=== PATIENT | male | born 1940 | race Caucasian/White ===

== ENCOUNTER 2019-11-06 11:16 | Emergency (ER) | payer MEDICARE, OTHER ==
[2019-11-06] MEDS ORDERED: BABY ASPIRIN 81 MG CHEW PO ONE (12:02)
[2019-11-06] MEDS ORDERED: Cardizem IV 50 MG/10 ML IV ONE ×2 (12:04→12:20)
[2019-11-06] MEDS ORDERED: Lasix 40 MG/4 ML IV ONE (12:04)
[2019-11-06] MEDS ORDERED: DUONEB 0.5-3 MG/3 ml Neb IH ONE ×2 (12:05→12:15)
[2019-11-06 12:12] LABS: Hematocrit 35.9 % (42-50); Hemoglobin 11.4 gm/dl (12.5-18.0); Mean Cell Volume 97.3 fl (78-100); Mean Corpuscular Hemoglobin 30.9 pg (26-32); Mean Corpuscular Hgb Concent. 31.8 g/dl (32-36); Mean Platelet Volume 10.2 fl (7.5-11.0); Platelet Count 205 K/mm3 (150-450); Red Blood Count 3.69 M/mm3 (4.1-5.6); Red Cell Distribution Width 15.2 % (11.5-14.0); White Blood Count 11.2 K/mm3 (4.0-10.5)
[2019-11-06] MEDS ORDERED: Lasix 40 MG/4 ML ONE (12:20)
[2019-11-06] MEDS ORDERED: BABY ASPIRIN 81 MG CHEW ONE (12:20)
[2019-11-06 12:29] LABS: ALBUMIN 3.7 g/dL (3.5-5.0); ANION GAP 16.1 MEQ/L (5-15); BILIRUBIN,TOTAL 0.7 mg/dL (0.2-1.3); Creatinine 1 4.35 mg/dL (0.66-1.25); EST GLOMERULAR FILTRATION RATE 14.1 ML/MIN; Potassium 4.3 mmol/L (3.5-5.1); Total Protein 6.6 g/dL (6.3-8.2)
--- NOTE | 2019-11-06 12:54 | ERPHSYRPT ---
- History of Present Illness Time Seen by Provider: 11/06/19 11:40 Historian: patient Exam Limitations: no limitations Patient Subjective Stated Complaint: Pt had a telehealth with [facility] and he was short of breath, bud lower extremity edema, and the pt stated that he thinks he had a heart attack last night Triage Nursing Assessment: Pt was brought to the ER by his , tachycardic, hypertensive, cough with clear sputum, tachypnea, bud lower +2 edema, extensive heart history, reports that unable to do any more surgeries on heart, pulses normal, denies pain, lungs coarse on expiration Physician History: 78 years old male with extensive history of coronary artery disease, CABG x2, hypertension atrial fibrillation flutter presented in the ER with 2 weeks history of cough congestion with gradual worsening associated with some shortness of breath and last night started to have left-sided chest pain moderate intensity, sharp in nature, took 6 nitros and 324 aspirin and after 3 to 4 hours it started to improve. Patient still feels short of breath and worn out with minimal activity. He has bilateral lower extremity swelling which is gradually worsening. Denies any chest pain at present but has some shortness of breath only with exertion. Patient report exertional dyspnea is worsening. He thinks he had a heart attack last night. Denies any fever or chills. Timing/Duration: intermittent, gradual onset, worse Activities at Onset: rest Quality: sharpness Location: substernal Chest Pain Radiation: no radiation Severity of Pain-Max: moderate Severity of Pain-Current: none Modifying Factors: Improves With: nitroglycerin, aspirin Associated Symptoms: palpitations, shortness of breath, fatigue, weakness, No chills, No fever Prior Chest Pain/Cardiac Workup: cardiac cath Nitro Today/Relief: provided at home Aspirin Treatment Today: provided by ED Allergies/Adverse Reactions: Penicillins Allergy (Verified 11/06/19 11:35) Home Medications: Clonidine HCl 0.1 mg [Catapres 0.1 MG] 0.05 mg PO BID 11/06/19 [History] Clopidogrel Bisulfate 75 mg [PLAVIX 75 MG Tablet] 75 mg PO DAILY 11/06/19 [History] Finasteride 5 mg PO DAILY 11/06/19 [History] Nifedipine [Procardia Xl] 30 mg PO BID 11/06/19 [History] Ranolazine 500 MG [Ranexa 500 MG] 500 mg PO BID 11/06/19 [History] Rosuvastatin Calcium [Crestor] 20 mg PO DAILY 11/06/19 [History] Tamsulosin HCl 0.4 mg [Flomax 0.4 MG] 0.4 mg PO DAILY 11/06/19 [History] allopurinoL [Allopurinol] 100 mg PO DAILY 11/06/19 [History] Travel Risk - International Travel Have you traveled outside of the country in past 3 weeks: No - Coronavirus Screening Are you exhibiting any of the following symptoms?: Yes Symptoms: Cough: New Onset, Shortness of Breath Close contact with a COVID-19 positive Pt in past 14-21 Days: No - Review of Systems Constitutional: Fatigue, Weakness Eyes: No Symptoms Ears, Nose, & Throat: Nose Congestion Respiratory: Cough, Dyspnea, Dyspnea on Exertion (DALEY), Wheezing Cardiac: Chest Pain, Edema, Palpitations Abdominal/Gastrointestinal: No Symptoms Genitourinary Symptoms: No Symptoms Musculoskeletal: No Symptoms Skin: No Symptoms Neurological: No Symptoms Psychological: No Symptoms Endocrine: No Symptoms Hematologic/Lymphatic: No Symptoms Immunological/Allergic: No Symptoms - Past Medical History Neurological History: TIA Cardiac History: Congenital Heart Disease, Congestive Heart Failure, Coronary Artery Disease History: Other - Past Surgical History Past Surgical History: Yes Cardiac: CABG - Social History Smoking Status: Former smoker Exposure to second hand smoke: No Drug Use: none Patient Lives Alone: No - Nursing Vital Signs Nursing Vital Signs: Initial Vital Signs Temperature 98.1 F 11/06/19 11:22 Pulse Rate 97 H 11/06/19 11:22 Respiratory Rate 13 11/06/19 11:22 Blood Pressure 158/88 11/06/19 11:22 O2 Sat by Pulse Oximetry 96 11/06/19 11:22 Pain Scale Pain Intensity 0 - Physical Exam General Appearance: no apparent distress, alert Eye Exam: PERRL/EOMI, eyes nml inspection Ears, Nose, Throat Exam: normal ENT inspection, pharyngeal erythema Neck Exam: normal inspection, non-tender, supple, full range of motion Respiratory Exam: crackles/rales, wheezing, No chest tenderness Cardiovascular Exam: tachycardia Gastrointestinal/Abdomen Exam: soft, normal bowel sounds Back Exam: normal inspection, normal range of motion Extremity Exam: normal inspection, normal range of motion, pedal edema Neurologic Exam: alert, oriented x 3, cooperative Skin Exam: normal color SpO2 Interpretation: normal SpO2: 95 O2 Delivery: Room Air - Course Nursing assessment & vital signs reviewed: Yes EKG Interpreted by Me: RATE (124, ATRIAL FLUTTER , PVC), NORMAL AXIS, Right Bundle Branch Block, Q-wave, Other (ST DEPRESSION ) Rhythm Strip: Atrial Flutter Ordered Tests: Active Orders 24 hr Category Date Time Status EKG-ER Only STAT Care 11/06/19 12:02 Active IV Insertion STAT Care 11/06/19 12:02 Active CHEST 1 VIEW (PORTABLE) Stat Exams 11/06/19 12:03 Taken BLOOD CULTURE Stat Lab 11/06/19 Ordered CBC W DIFF Stat Lab 11/06/19 11:48 Completed CMP Stat Lab 11/06/19 11:48 Completed Lactic Acid Stat Lab 11/06/19 12:28 Completed NT PRO BNP Stat Lab 11/06/19 11:48 Completed TROPONIN Q3H Lab 11/06/19 11:48 Completed TROPONIN Q3H Lab 11/06/19 15:15 Ordered TROPONIN Q3H Lab 11/06/19 18:15 Ordered TROPONIN Q3H Lab 11/06/19 21:15 Ordered TROPONIN Q3H Lab 11/07/19 00:15 Ordered UA W/RFX UR CULTURE Stat Lab 11/06/19 12:03 Uncollected Peak Expiratory Flow Rate ONCE RT 11/06/19 12:21 Active Respiratory Therapy Assessment DAILY RT 11/06/19 12:21 Active Medication Summary Generic Name Dose Route Start Last Admin Trade Name Freq PRN Reason Stop Dose Admin Doxycycline Hyclate 100 mg/ 100 mls @ 100 mls/hr 11/06/19 22:00 Dextrose IV 12/06/19 21:59 Q12HT BENY Heparin Sodium/Dextrose 25,000 units in 250 mls @ 10 mls/hr 11/06/19 13:30 Heparin 25,000 Units/D5w 250ml Premix IV 12/06/19 13:29 .Q24H BENY Diltiazem HCl 100 mls @ 5 mls/hr 11/06/19 13:06 Cardizem Drip 100 Mg/100 Ml D5w IV 12/06/19 13:05 .Q20H PRN HEART RATE/ A-FIB Protocol 5 MG/HR Discontinued Medications Generic Name Dose Route Start Last Admin Trade Name Freq PRN Reason Stop Dose Admin Albuterol/Ipratropium 3 ml 11/06/19 12:05 11/06/19 12:16 Duoneb 0.5-3 Mg/3 Ml Neb IH 11/06/19 12:06 3 ml STAT ONE Administration Albuterol/Ipratropium Confirm 11/06/19 12:15 Duoneb 0.5-3 Mg/3 Ml Neb Administered 11/06/19 12:16 Dose 3 ml IH .STK-MED ONE Aspirin 324 mg 11/06/19 12:02 11/06/19 12:22 Baby Aspirin 81 Mg Chew PO 11/06/19 12:03 324 mg STAT ONE Administration Aspirin Confirm 11/06/19 12:20 Baby Aspirin 81 Mg Chew Administered 11/06/19 12:21 Dose 324 mg .ROUTE .STK-MED ONE Diltiazem HCl 15 mg 11/06/19 12:04 11/06/19 12:22 Cardizem Iv 50 Mg/10 Ml IV 11/06/19 12:05 15 mg STAT ONE Administration Diltiazem HCl Confirm 11/06/19 12:20 Cardizem Iv 50 Mg/10 Ml Administered 11/06/19 12:21 Dose 50 mg IV .STK-MED ONE Doxycycline Hyclate Confirm 11/06/19 13:12 Vibramycin 100 Mg Administered 11/06/19 13:13 Dose 100 mg IV .STK-MED ONE Furosemide 40 mg 11/06/19 12:04 11/06/19 12:22 Lasix 40 Mg/4 Ml IV 11/06/19 12:05 40 mg STAT ONE Administration Furosemide Confirm 11/06/19 12:20 Lasix 40 Mg/4 Ml Administered 11/06/19 12:21 Dose 40 mg .ROUTE .STK-MED ONE Heparin Sodium (Beef Lung) 5,000 unit 11/06/19 13:06 Heparin 5000 Units/0.5 Ml (High Risk Med) IV 11/06/19 13:07 STAT ONE Heparin Sodium (Beef Lung) Confirm 11/06/19 13:12 Heparin 5000 Units/0.5 Ml (High Risk Med) Administered 11/06/19 13:13 Dose 5,000 unit .ROUTE .[employer] ONE Dextrose Confirm 11/06/19 13:16 D5w 100ml Mini Bag 100 Ml Administered 11/06/19 13:17 Dose 100 mls @ ud IV .STK-MED ONE Lab/Rad Data: Laboratory Result Diagrams 11/06/19 11:48 11/06/19 11:48 Laboratory Results 11/06/19 11/06/19 11/06/19 Range/Units 12:28 11:48 11:48 WBC (4.0-10.5) K/mm3 RBC (4.1-5.6) M/mm3 Hgb (12.5-18.0) gm/dl Hct (42-50) % MCV (78-100) fl MCH (26-32) pg MCHC (32-36) g/dl RDW (11.5-14.0) % Plt Count (150-450) K/mm3 MPV (7.5-11.0) fl Sodium 139 (137-145) mmol/L Potassium 4.3 (3.5-5.1) mmol/L Chloride 112 H (98-107) mmol/L Carbon Dioxide 15 L* (22-30) mmol/L Anion Gap 16.1 H (5-15) MEQ/L BUN 45 H (9-20) mg/dL Creatinine 4.35 H (0.66-1.25) mg/dL Estimated GFR 14.1 ML/MIN Glucose 103 (74-106) mg/dL Lactic Acid 1.2 (0.4-2.0) Calcium 9.0 (8.4-10.2) mg/dL Total Bilirubin 0.70 (0.2-1.3) mg/dL AST 73 H (17-59) U/L ALT 24 (0-50) U/L Alkaline Phosphatase 80 (38-126) U/L Troponin I 12.900 H* (0.000-0.034) ng/mL NT-Pro-B Natriuret Pep 58957 H (0-1800) pg/mL Serum Total Protein 6.6 (6.3-8.2) g/dL Albumin 3.7 (3.5-5.0) g/dL 11/06/19 Range/Units 11:48 WBC 11.2 H (4.0-10.5) K/mm3 RBC 3.69 L (4.1-5.6) M/mm3 Hgb 11.4 L (12.5-18.0) gm/dl Hct 35.9 L (42-50) % MCV 97.3 (78-100) fl MCH 30.9 (26-32) pg MCHC 31.8 L (32-36) g/dl RDW 15.2 H (11.5-14.0) % Plt Count 205 (150-450) K/mm3 MPV 10.2 (7.5-11.0) fl Sodium (137-145) mmol/L Potassium (3.5-5.1) mmol/L Chloride (98-107) mmol/L Carbon Dioxide (22-30) mmol/L Anion Gap (5-15) MEQ/L BUN (9-20) mg/dL Creatinine (0.66-1.25) mg/dL Estimated GFR ML/MIN Glucose (74-106) mg/dL Lactic Acid (0.4-2.0) Calcium (8.4-10.2) mg/dL Total Bilirubin (0.2-1.3) mg/dL AST (17-59) U/L ALT (0-50) U/L Alkaline Phosphatase (38-126) U/L Troponin I (0.000-0.034) ng/mL NT-Pro-B Natriuret Pep (0-1800) pg/mL Serum Total Protein (6.3-8.2) g/dL Albumin (3.5-5.0) g/dL - Progress Progress: improved, re-examined Air Movement: fair Progress Note: 11/06/19 13:21 78 years old is evaluated for shortness of breath, cough and chest pain last night. Patient is not in any distress on presentation. Has bilateral lower extremity 2+ pitting edema and coarse crackles bilaterally. He is given a breathing treatment, aspirin and a small dose of Lasix. EKG showed atrial flutter with a rate in 120s, given an IV bolus of Cardizem with minimal improvement in the heart rate. He does have diffuse ST depression in anterolateral leads. Work-up showed minimal elevated white count, chest x-ray suggesting airspace disease in right lower lung and is given a dose of an tibiotic. He has a troponin of 12.9 with chronic renal failure creatinine of 4.3 and BUN 45, BNP around 25,000. I believe patient has multifactorial dyspnea with some element of NSTEMI, CHF exacerbation, pneumonia, CKD/fluid retention. Patient needs higher level of care especially cardiology services. Discussed with Dr. baires at [facility], reviewed patient's presentation, lab work and need for cardiology services. Patient is accepted for transfer. Patient still have heart rate in 110s, started on Cardizem drip. He is also started on heparin drip which excepting physician agrees. Plan discussed with patient who understand and agrees with it. Blood Culture(s) Obtained: Yes Antibiotics given: Yes Discussed with Dr.: Other ( [facility]) Counseled pt/family regarding: lab results, diagnosis, rad results - Departure Departure Disposition: Transfer Clinical Impression: Non-STEMI (non-ST elevated myocardial infarction), Atrial flutter with rapid ventricular response CHF exacerbation Qualifiers: Heart failure type: unspecified Qualified Code(s): I50.9 - Heart failure, unspecified Pneumonia Qualifiers: Pneumonia type: due to unspecified organism Laterality: right Lung location: lower lobe of lung Qualified Code(s): J18.9 - Pneumonia, unspecified organism Chronic kidney disease Qualifiers: Chronic kidney disease stage: unspecified stage Qualified Code(s): N18.9 - Chronic kidney disease, unspecified Condition: Fair Critical Care Time: Yes Critical Care Time(excluding separately billable procedures): Critical 75-104 mins Referrals: NIKITA ODELL [Primary Care Provider] - Instructions: Heart Failure
[2019-11-06 13:06] VITALS: BP 157/104
[2019-11-06] MEDS ORDERED: Heparin 5000 UNITS/0.5 ML (HIGH RISK MED) IV ONE (13:06)
[2019-11-06] MEDS ORDERED: CARDIZEM DRIP 100 MG/100 ML D5W 100 ML IV PRN (13:06)
[2019-11-06] MEDS ORDERED: Heparin 5000 UNITS/0.5 ML (HIGH RISK MED) ONE (13:12)
[2019-11-06] MEDS ORDERED: VIBRAMYCIN 100 MG IV ONE (13:12)
[2019-11-06] MEDS ORDERED: Heparin 25,000 units/D5W 250ML PREMIX 25,000 UNITS/250 ML BAG IV ONE (13:12)
[2019-11-06 13:13] VITALS: O2SAT 95
[2019-11-06] MEDS ORDERED: CARDIZEM DRIP 100 MG/100 ML D5W 0 ML IV ONE (13:13)
[2019-11-06] MEDS ORDERED: D5w 100ML Mini Bag 100 ML 100 ML IV ONE (13:16)
[2019-11-06] MEDS ORDERED: Heparin 25,000 units/D5W 250ML PREMIX 25,000 UNITS/250 ML BAG IV SCH (13:30)
[2019-11-06 14:34] VITALS: PULSE 126
[2019-11-06 15:30] LABS: BAND 6 % (0.0-2.0); Lymphocytes 10 % (24-44); Monocyte 7 % (0.0-12.0); Neutrophils 77 % (36.-66.); Platelet Estimate NORMAL (NORMAL); Total Cells Counted 100
[2019-11-06 15:31] LABS: Toxic Granulation 1+
--- NOTE | 2019-11-06 20:53 | XRAY ---
Indication: Pneumonia. CHF. Comparison: None Portable apical lordotic chest demonstrates lingula infiltrate/atelectasis with small effusion. Heart is borderline enlarged with CABG surgery. Bony thorax intact with degenerative changes.
[2019-11-06] MEDS ORDERED: VIBRAMYCIN 100 MG*** 100 MG in Dextrose 5%/Water IV Soln. 100ML PLUS BAG 100 ML IV SCH (22:00)
== END 2019-11-06 15:17 | disposition short-term general hospital (02) ==
LOC: ED 11:16
DX: I21.4 Non-ST elevation (NSTEMI) myocardial infarction (principal); I48.92 Unspecified atrial flutter; I10 Essential (primary) hypertension; I50.9 Heart failure, unspecified; J18.9 Pneumonia, unspecified organism; N18.9 Chronic kidney disease, unspecified; I12.9 Hypertensive chronic kidney disease with stage 1 through stage 4 chronic kidney disease, or unspecified chronic kidney disease
CPT/HCPCS: 36000; 36415; 71045; 80053; 83605; 83880; 84484; 85025; 87040; 93005; 94150; 94640; 96365; 96367; 96368; 96374; 96375; 99285; 99291; 99292; J1644; J1940; A9270-GY

== ENCOUNTER 2020-06-14 03:31 | Emergency (ER) | payer MEDICARE, OTHER ==
[2020-06-14] MEDS ORDERED: Cordarone 150 MG/3 ML Injection ONE (03:47)
--- NOTE | 2020-06-14 03:47 | ERPHSYRPT ---
- History of Present Illness Time Seen by Provider: 06/14/20 03:40 Historian: patient, EMS Exam Limitations: no limitations Physician History: This is a 79-year-old white male who has a history of coronary artery disease, MT, CHF, CVA and has had cardiac stents placed as recent as [address] Ace at [facility]. This prior to this evaluation patient had a non-STEMI MT and the cardiac stents were evaluated and they were open per patient report. Patient states that he had left chest pain and sensation of his heart racing that woke him up out of his sleep this morning. Patient states he has been taking his medication as prescribed. Patient took 4 baby aspirin prior to his arrival here. In addition, patient is on Plavix and Eliquis. Patient has chronic kidney disease and has a dialysis catheter in place. Patient's heart rate upon arrival of EMS was 162. Patient has not had a fever. He has no abdominal pain. Patient prefers to go to [facility] if possible. Patient states his cardiac ejection fraction is 10%. Timing/Duration: today Quality: aching (Left anterior chest) Location: other (Left anterior chest) Severity of Pain-Max: mild Severity of Pain-Current: mild Associated Symptoms: palpitations, shortness of breath (Mild), No nausea, No vomiting, No abdominal pain, No diaphoresis, No chills, No fever Prior Chest Pain/Cardiac Workup: cardiac cath, echocardiography, heart attack Nitro Today/Relief: no nitro taken today Aspirin Treatment Today: 81 mg x 4, provided at home Allergies/Adverse Reactions: Penicillins Allergy (Verified 11/06/19 11:35) Home Medications: Clonidine HCl 0.1 mg [Catapres 0.1 MG] 0.05 mg PO BID 11/06/19 [History] Clopidogrel Bisulfate 75 mg [PLAVIX 75 MG Tablet] 75 mg PO DAILY 11/06/19 [History] Finasteride 5 mg PO DAILY 11/06/19 [History] Nifedipine [Procardia Xl] 30 mg PO BID 11/06/19 [History] Ranolazine 500 MG [Ranexa 500 MG] 500 mg PO BID 11/06/19 [History] Rosuvastatin Calcium [Crestor] 20 mg PO DAILY 11/06/19 [History] Tamsulosin HCl 0.4 mg [Flomax 0.4 MG] 0.4 mg PO DAILY 11/06/19 [History] allopurinoL [Allopurinol] 100 mg PO DAILY 11/06/19 [History] Travel Risk - International Travel Have you traveled outside of the country in past 3 weeks: No - Coronavirus Screening Are you exhibiting any of the following symptoms?: No Close contact with a COVID-19 positive Pt in past 14-21 Days: No - Vaccine Status Have you recieved a Covid-19 vaccination: Yes [employer]: [employer] - Review of Systems Constitutional: No Symptoms Eyes: No Symptoms Ears, Nose, & Throat: No Symptoms Respiratory: Dyspnea Cardiac: Chest Pain, Palpitations Abdominal/Gastrointestinal: No Symptoms Genitourinary Symptoms: No Symptoms Musculoskeletal: No Symptoms Skin: No Symptoms Neurological: No Symptoms Psychological: No Symptoms Endocrine: No Symptoms Hematologic/Lymphatic: No Symptoms Immunological/Allergic: No Symptoms All Other Systems: Reviewed and Negative - Past Medical History Neurological History: Stroke Cardiac History: Arrhythmia, Congestive Heart Failure, Myocardial Infarction (MT) Respiratory History: CHF, COPD Endocrine Medical History: Adrenal Insufficiency Musculoskeletal History: Osteoarthritis History: Other Other Medical History: Pt has a bone spur in the R shoulder, 2 By-pass surgeries 05/03/94 and 12/29/01. Heart stints, light stroke 10/24/12. - Past Surgical History Past Surgical History: Yes Cardiac: CABG - Social History Smoking Status: Former smoker Exposure to second hand smoke: No Drug Use: none Patient Lives Alone: No - Nursing Vital Signs Nursing Vital Signs: Initial Vital Signs Pulse Rate 152 H 06/14/20 03:36 Blood Pressure 122/82 06/14/20 03:36 O2 Sat by Pulse Oximetry 94 L 06/14/20 03:36 Pain Scale Pain Intensity 2 - Physical Exam General Appearance: mild distress, alert, anxiety Eye Exam: PERRL/EOMI, eyes nml inspection Ears, Nose, Throat Exam: normal ENT inspection, moist mucous membranes Neck Exam: normal inspection, non-tender, supple, full range of motion Respiratory Exam: normal breath sounds, chest tenderness, lungs clear, airway intact, No respiratory distress Cardiovascular Exam: tachycardia Gastrointestinal/Abdomen Exam: soft, normal bowel sounds, No tenderness Rectal Exam: not done Back Exam: normal inspection, normal range of motion, No CVA tenderness, No vertebral tenderness Extremity Exam: normal inspection, normal range of motion, pelvis stable Neurologic Exam: alert, oriented x 3, cooperative, 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 as tested, normal mood/affect, nml cerebellar function, nml station & gait, sensation nml Skin Exam: normal color, warm, dry Lymphatic Exam: No adenopathy SpO2 Interpretation: borderline oxygenation SpO2: 94 Procedures - Central Line Time Of Procedure: 04:20 Timeout: Performed Central Line Lumen: triple Lumen Size: 7 Portuguese Central Line Procedure: chlorahexadine prep, sterile dressing applied, Aseptic Technique, Seldinger Technique Central Line Postion: subclavian (L) Anesthesia: 1% Lidocaine cc's of anesthesia: 5 Ultrasound Guided Placement: No Complications: none Central Line Post Position: sutured, good blood return, position confirmed w/ CXR, chest x-ray ordered - Course Nursing assessment & vital signs reviewed: Yes EKG Interpreted by Me: RATE (151), Sinus Tach (Wide QRS), NORMAL AXIS, Right Bundle Branch Block, Other (The patient's EKG shows wide QRS tachycardia. This is new when compared to an EKG dated 11/06/2019. On the prior EKG the patient had atrial flutter.) Ordered Tests: Active Orders 24 hr Category Date Time Status EKG-ER Only STAT Care 06/14/20 03:46 Active IV Insertion STAT Care 06/14/20 03:46 Active Pulse Oximetry (ED) STAT Care 06/14/20 03:46 Active CHEST 1 VIEW (PORTABLE) Stat Exams 06/14/20 04:27 Taken CBC W DIFF Stat Lab 06/14/20 03:55 Completed CMP Stat Lab 06/14/20 03:55 Completed MAGNESIUM Stat Lab 06/14/20 03:45 Completed NT PRO BNP Stat Lab 06/14/20 03:55 Completed TROPONIN Q3H Lab 06/14/20 03:55 Completed TROPONIN Q3H Lab 06/14/20 07:00 Ordered TROPONIN Q3H Lab 06/14/20 10:00 Ordered TROPONIN Q3H Lab 06/14/20 13:00 Ordered TROPONIN Q3H Lab 06/14/20 16:00 Ordered Medication Summary Generic Name Dose Route Start Last Admin Trade Name Freq PRN Reason Stop Dose Admin Amiodarone HCl/Dextrose 360 mg in 200 mls @ 33 mls/hr 06/14/20 05:00 06/14/20 04:54 Nexterone 360 Mg/200 Ml Bag IV 07/14/20 04:59 33 mls/hr .Q6H4M BENY 33 mls/hr Administration Protocol Discontinued Medications Generic Name Dose Route Start Last Admin Trade Name Gorgeq PRN Reason Stop Dose Admin Adenosine Confirm 06/14/20 03:53 Adenocard Iv 6 Mg/2 Ml Administered 06/14/20 03:54 Dose 6 mg IV .STK-MED ONE Adenosine Confirm 06/14/20 04:32 Adenocard Iv 6 Mg/2 Ml Administered 06/14/20 04:33 Dose 12 mg IV .STK-MED ONE Amiodarone HCl Confirm 06/14/20 03:47 Cordarone 150 Mg/3 Ml Injection Administered 06/14/20 03:48 Dose 150 mg .ROUTE .STK-MED ONE Furosemide 40 mg 06/14/20 04:41 06/14/20 04:47 Lasix 40 Mg/4 Ml IV 06/14/20 04:42 40 mg STAT ONE Administration Furosemide Confirm 06/14/20 04:45 Lasix 40 Mg/4 Ml Administered 06/14/20 04:46 Dose 40 mg .ROUTE .STK-MED ONE Amiodarone HCl/Dextrose Confirm 06/14/20 04:45 Nexterone 360 Mg/200 Ml Bag Administered 06/14/20 04:46 Dose 360 mg in 200 mls @ ud IV .STK-MED ONE Lab/Rad Data: Laboratory Result Diagrams 06/14/20 03:55 06/14/20 03:55 Laboratory Results 06/14/20 06/14/20 06/14/20 Range/Units 03:55 03:55 03:55 WBC 9.5 (4.0-10.5) K/mm3 RBC 3.31 L (4.1-5.6) M/mm3 Hgb 11.8 L (12.5-18.0) gm/dl Hct 36.3 L (42-50) % MCV 109.7 H (78-100) fl MCH 35.6 H (26-32) pg MCHC 32.5 (32-36) g/dl RDW 13.2 (11.5-14.0) % Plt Count 143 L (150-450) K/mm3 MPV 11.8 H (7.5-11.0) fl Gran % 77.0 H (36.0-66.0) % Eos # (Auto) 0.12 (0-0.5) Absolute Lymphs (auto) 1.06 (1.0-4.6) Absolute Monos (auto) 0.98 (0.0-1.3) Lymphocytes % 11.2 L (24.0-44.0) % Monocytes % 10.3 (0.0-12.0) % Eosinophils % 1.3 (0.00-5.0) % Basophils % 0.2 (0.0-0.4) % Absolute Granulocytes 7.29 H (1.4-6.9) Basophils # 0.02 (0-0.4) Sodium 136 L (137-145) mmol/L Potassium 4.1 (3.5-5.1) mmol/L Chloride 99 (98-107) mmol/L Carbon Dioxide 25 (22-30) mmol/L Anion Gap 16.2 H (5-15) MEQ/L BUN 49 H (9-20) mg/dL Creatinine 5.51 H (0.66-1.25) mg/dL Estimated GFR 10.7 ML/MIN Glucose 110 H (74-106) mg/dL Calcium 9.3 (8.4-10.2) mg/dL Magnesium (1.6-2.3) mg/dL Total Bilirubin 0.50 (0.2-1.3) mg/dL AST 24 (17-59) U/L ALT 21 (0-50) U/L Alkaline Phosphatase 91 (38-126) U/L Troponin I 1.960 H* (0.000-0.034) ng/mL NT-Pro-B Natriuret Pep 8330 H (0-1800) pg/mL Serum Total Protein 6.5 (6.3-8.2) g/dL Albumin 3.8 (3.5-5.0) g/dL 06/14/20 Range/Units 03:45 WBC (4.0-10.5) K/mm3 RBC (4.1-5.6) M/mm3 Hgb (12.5-18.0) gm/dl Hct (42-50) % MCV (78-100) fl MCH (26-32) pg MCHC (32-36) g/dl RDW (11.5-14.0) % Plt Count (150-450) K/mm3 MPV (7.5-11.0) fl Gran % (36.0-66.0) % Eos # (Auto) (0-0.5) Absolute Lymphs (auto) (1.0-4.6) Absolute Monos (auto) (0.0-1.3) Lymphocytes % (24.0-44.0) % Monocytes % (0.0-12.0) % Eosinophils % (0.00-5.0) % Basophils % (0.0-0.4) % Absolute Granulocytes (1.4-6.9) Basophils # (0-0.4) Sodium (137-145) mmol/L Potassium (3.5-5.1) mmol/L Chloride (98-107) mmol/L Carbon Dioxide (22-30) mmol/L Anion Gap (5-15) MEQ/L BUN (9-20) mg/dL Creatinine (0.66-1.25) mg/dL Estimated GFR ML/MIN Glucose (74-106) mg/dL Calcium (8.4-10.2) mg/dL Magnesium 2.2 (1.6-2.3) mg/dL Total Bilirubin (0.2-1.3) mg/dL AST (17-59) U/L ALT (0-50) U/L Alkaline Phosphatase (38-126) U/L Troponin I (0.000-0.034) ng/mL NT-Pro-B Natriuret Pep (0-1800) pg/mL Serum Total Protein (6.3-8.2) g/dL Albumin (3.5-5.0) g/dL - Progress Progress: improved, re-examined Air Movement: good Progress Note: 06/14/20 05:03 Chest x-ray shows no pneumothorax. The tip of the left subclavian vein central line is at the opening of the SVC. There is no acute cardiopulmonary process. Second twelve-lead EKG performed today at 4:24 AM that was performed before the first adenosine but after the amiodarone bolus shows heart rate 149 with a wide- complex tachycardia no other changes. The third EKG that was performed today at 4:33 AM after the first dose of adenosine shows heart rate of 151 with a wide-complex tachycardia no other changes. The fourth twelve-lead EKG was performed today at 4:39 AM after the second dose of adenosine (12 mg). The heart rate is 148 and no other changes are noted. Medical decision making: This patient has wide complex tachycardia. His heart rate has improved only slightly. He is maintaining his systolic blood pressure. His most recent systolic blood pressure is 128. Patient has an elevated troponin level 1.96. His BNP is elevated at over 8800. Patient was discussed with [facility] emergency room physician Dr. Pizarro. I reviewed the patient history, his current heart rate and blood pressure, my interventions that I performed in this patient and the results of his chest x-ray and labs. Dr. Pizarro accepts the patient in transfer. Clinically, the patient states he is feeling better although his heart rate has only marginally decreased despite my interventions. Patient is in need of cardiology evaluation and intervention. Patient was being transferred to [facility] emergency department on an amiodarone drip. Blood Culture(s) Obtained: No Antibiotics given: No Counseled pt/family regarding: lab results, diagnosis, rad results - Departure Departure Disposition: Transfer Clinical Impression: Wide-complex tachycardia, Non-STEMI (non-ST elevated myocardial infarction), Elevated troponin, CHF exacerbation Condition: Serious Critical Care Time: Yes Critical Care Time(excluding separately billable procedures): Critical 30-74 mins Referrals: NIKITA ODELL [Primary Care Provider] - Instructions: Heart Failure
[2020-06-14] MEDS ORDERED: Adenocard IV 6 MG/2 ML IV ONE ×2 (03:53→04:32)
[2020-06-14 04:04] LABS: Absolute Neutrophil Ct (ANC) 7.29 (1.4-6.9); BASOPHIL % 0.2 % (0.0-0.4); Basophil (Absolute #) 0.02 (0-0.4); Eosinophil % 1.3 % (0.00-5.0); Eosinophil (Absolute #) 0.12 (0-0.5); Hematocrit 36.3 % (42-50); Hemoglobin 11.8 gm/dl (12.5-18.0); Lymphocyte (Absolute #) 1.06 (1.0-4.6); Lymphocytes % 11.2 % (24.0-44.0); Mean Cell Volume 109.7 fl (78-100); Mean Corpuscular Hemoglobin 35.6 pg (26-32); Mean Corpuscular Hgb Concent. 32.5 g/dl (32-36); Mean Platelet Volume 11.8 fl (7.5-11.0); Monocyte (Absolute #) 0.98 (0.0-1.3); Monocytes % 10.3 % (0.0-12.0); Platelet Count 143 K/mm3 (150-450); Red Blood Count 3.31 M/mm3 (4.1-5.6); Red Cell Distribution Width 13.2 % (11.5-14.0); White Blood Count 9.5 K/mm3 (4.0-10.5)
[2020-06-14 04:20] LABS: ALBUMIN 3.8 g/dL (3.5-5.0); ANION GAP 16.2 MEQ/L (5-15); BILIRUBIN,TOTAL 0.5 mg/dL (0.2-1.3); Calcium 9.3 mg/dL (8.4-10.2); Creatinine 1 5.51 mg/dL (0.66-1.25); EST GLOMERULAR FILTRATION RATE 10.7 ML/MIN; Potassium 4.1 mmol/L (3.5-5.1); Total Protein 6.5 g/dL (6.3-8.2)
[2020-06-14] MEDS ORDERED: NEXTERONE 360 MG/200 ML BAG 360 MG/200 ML PLAST..BAG IV ONE (04:45)
[2020-06-14] MEDS ORDERED: Lasix 40 MG/4 ML ONE (04:45)
[2020-06-14] MEDS: Lasix 40 MG/4 ML IV ONE (04:47)
[2020-06-14] MEDS: NEXTERONE 360 MG/200 ML BAG 360 MG/200 ML PLAST..BAG IV SCH (04:54)
[2020-06-14 05:00] VITALS: BP 128/80; PULSE 148; O2SAT 94
--- NOTE | 2020-06-14 08:45 | XRAY ---
Indication: Line placement. Chest pain. Comparison: November 06, 2019. Portable chest demonstrates new left subclavian central venous access catheter with tip projecting over proximal SVC and new right double lumen large bore dialysis catheter with tip projecting over aortocaval junction. No pneumothorax. Stable left costophrenic angle blunting, probable pleural effusion/pleural thickening. Right lung clear. Heart not enlarged again with CABG surgery. Bony thorax intact again with mild degenerative changes. Impression: 1. New venous access catheters without complications. 2. Stable left base pleural effusion/thickening.
== END 2020-06-14 05:10 | disposition short-term general hospital (02) ==
LOC: ED 03:31
DX: M99.15 Subluxation complex (vertebral) of pelvic region (principal); I21.3 ST elevation (STEMI) myocardial infarction of unspecified site; I21.4 Non-ST elevation (NSTEMI) myocardial infarction; R74.8 Abnormal levels of other serum enzymes; I50.9 Heart failure, unspecified; M19.90 Unspecified osteoarthritis, unspecified site; I25.810 Atherosclerosis of coronary artery bypass graft(s) without angina pectoris; Z79.899 Other long term (current) drug therapy
CPT/HCPCS: 36000; 36415; 71045; 80053; 83735; 83880; 84484; 85025; 93005; 94760; 96374; 99285; 99291; J0153; J0282; J1940

== ENCOUNTER 2020-07-05 21:41 | Emergency (ER) | payer MEDICARE, OTHER ==
[2020-07-05] MEDS ORDERED: NEXTERONE 360 MG/200 ML BAG 360 MG/200 ML PLAST..BAG IV ONE (22:08)
[2020-07-05] MEDS ORDERED: NEXTERONE 360 MG/200 ML BAG 360 MG/200 ML PLAST..BAG IV SCH (22:15)
[2020-07-05 22:56] LABS: Absolute Neutrophil Ct (ANC) 4.39 (1.4-6.9); BASOPHIL % 0.3 % (0.0-0.4); Basophil (Absolute #) 0.02 (0-0.4); Eosinophil % 1.7 % (0.00-5.0); Hematocrit 32.9 % (42-50); Hemoglobin 10.1 gm/dl (12.5-18.0); Lymphocyte (Absolute #) 0.93 (1.0-4.6); Lymphocytes % 15.4 % (24.0-44.0); Mean Cell Volume 113.1 fl (78-100); Mean Corpuscular Hemoglobin 34.7 pg (26-32); Mean Corpuscular Hgb Concent. 30.7 g/dl (32-36); Mean Platelet Volume 11.2 fl (7.5-11.0); Monocytes % 9.9 % (0.0-12.0); Neutrophil % 72.7 % (36.0-66.0); Platelet Count 122 K/mm3 (150-450); Red Blood Count 2.91 M/mm3 (4.1-5.6); Red Cell Distribution Width 14.6 % (11.5-14.0)
[2020-07-05 23:15] LABS: ALBUMIN 3.9 g/dL (3.5-5.0); ANION GAP 14.8 MEQ/L (5-15); BILIRUBIN,TOTAL 0.6 mg/dL (0.2-1.3); Calcium 8.8 mg/dL (8.4-10.2); Creatinine 1 4.52 mg/dL (0.66-1.25); EST GLOMERULAR FILTRATION RATE 13.4 ML/MIN; MAGNESIUM 2.1 mg/dL (1.6-2.3); Potassium 3.8 mmol/L (3.5-5.1); Total Protein 6.7 g/dL (6.3-8.2)
--- NOTE | 2020-07-05 23:38 | ERPHSYRPT ---
- History of Present Illness Time Seen by Provider: 07/05/20 21:50 Historian: patient Exam Limitations: no limitations Patient Subjective Stated Complaint: pt states his defib has shocked him 7-8 times started approx 1944. denies any chest pain or difficulty breathing Triage Nursing Assessment: pt alert and oriented, answers questins approp. pt a rrive per ambuance and transfers to stretcher with assist of 3. respirations nonlabored. skin pink warm and dry. heart rate 90 on monitor- a fib with occasional paced beats. av fistula to rt arm- wnl. dialysis cath to rt subclavian. Physician History: Patient is a 79-year-old male with a history of end-stage renal disease on dialysis history of coronary artery disease/CABG presents to our ED because his AICD discharged 7-8 times. Incident occurred at approximately 1944. There is no associated chest pain. Patient called 911. Upon their arrival patient was found to be in intermittent V. tach. Amiodarone drip was started. V. tach stabilized. Patient currently feels well. No nausea or vomiting. No dizziness no diaphoresis. Patient's AICD is [email or web address]. He does not have his card with him at this time. Patient otherwise feels well has no complaints. No trauma. No fever. Patient took his Eliquis Plavix and nitroglycerin prior to arrival. Timing/Duration: today Activities at Onset: none Quality: other (Palpitation from AICD discharge.) Location: substernal Chest Pain Radiation: no radiation Severity of Pain-Max: moderate Severity of Pain-Current: mild Modifying Factors: Improves With: nothing Associated Symptoms: denies symptoms Prior Chest Pain/Cardiac Workup: cardiac cath Nitro Today/Relief: no nitro taken today Aspirin Treatment Today: no aspirin today Allergies/Adverse Reactions: Penicillins Allergy (Verified 07/05/20 22:05) Home Medications: Clonidine HCl 0.1 mg [Catapres 0.1 MG] 0.05 mg PO BID 11/06/19 [History] Clopidogrel Bisulfate 75 mg [PLAVIX 75 MG Tablet] 75 mg PO DAILY 11/06/19 [History] Finasteride 5 mg PO DAILY 11/06/19 [History] Nifedipine [Procardia Xl] 30 mg PO BID 11/06/19 [History] Ranolazine 500 MG [Ranexa 500 MG] 500 mg PO BID 11/06/19 [History] Rosuvastatin Calcium [Crestor] 20 mg PO DAILY 11/06/19 [History] Tamsulosin HCl 0.4 mg [Flomax 0.4 MG] 0.4 mg PO DAILY 11/06/19 [History] allopurinoL [Allopurinol] 100 mg PO DAILY 11/06/19 [History] Hx Tetanus, Diphtheria Vaccination/Date Given: Yes Hx Influenza Vaccination/Date Given: Yes Hx Pneumococcal Vaccination/Date Given: Yes Immunizations Up to Date: Yes Travel Risk - International Travel Have you traveled outside of the country in past 3 weeks: No - Coronavirus Screening Are you exhibiting any of the following symptoms?: No - Vaccine Status Have you recieved a Covid-19 vaccination: Yes 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[employer] - Vaccination Dates Date of 2cond Vaccination (if applicable): may 2020 - Review of Systems Constitutional: No Symptoms, No Fever, No Chills Eyes: No Symptoms Ears, Nose, & Throat: No Symptoms Respiratory: No Symptoms, No Cough, No Dyspnea Cardiac: No Symptoms, No Chest Pain, No Edema, No Syncope Abdominal/Gastrointestinal: No Symptoms, No Abdominal Pain, No Nausea, No Vomiting, No Diarrhea Genitourinary Symptoms: No Symptoms, No Dysuria Musculoskeletal: No Symptoms, No Back Pain, No Neck Pain Skin: No Symptoms, No Rash Neurological: No Symptoms, No Dizziness, No Focal Weakness, No Sensory Changes Psychological: No Symptoms Endocrine: No Symptoms Hematologic/Lymphatic: No Symptoms Immunological/Allergic: No Symptoms All Other Systems: Reviewed and Negative - Past Medical History Pertinent Past Medical History: Yes Neurological History: Stroke Cardiac History: Arrhythmia, Congestive Heart Failure, Myocardial Infarction ([place]) Respiratory History: CHF, COPD Endocrine Medical History: Adrenal Insufficiency Musculoskeletal History: Osteoarthritis History: Other Other Medical History: Pt has a bone spur in the R shoulder, 2 By-pass surgeries 05/03/94 and 12/29/01. Heart stints, light stroke 10/24/12. - Past Surgical History Past Surgical History: Yes Cardiac: CABG, Internal Defibrillator, Pacemaker Other Surgical History: cabg x2 - Social History Smoking Status: Former smoker Exposure to second hand smoke: No Drug Use: none Patient Lives Alone: No - Nursing Vital Signs Nursing Vital Signs: Initial Vital Signs Temperature 98.1 F 05/26/21 21:42 Pulse Rate 90 07/05/20 21:42 Respiratory Rate 16 07/05/20 21:42 Blood Pressure 100/53 07/05/20 21:42 O2 Sat by Pulse Oximetry 99 07/05/20 21:42 Pain Scale Pain Intensity 0 - Physical Exam General Appearance: no apparent distress, alert Eye Exam: PERRL/EOMI, eyes nml inspection Ears, Nose, Throat Exam: normal ENT inspection, moist mucous membranes Neck Exam: normal inspection, non-tender, supple, full range of motion Respiratory Exam: normal breath sounds, lungs clear, No respiratory distress Cardiovascular Exam: regular rate/rhythm, normal heart sounds Gastrointestinal/Abdomen Exam: soft, No tenderness, No mass Back Exam: normal inspection, No CVA tenderness, No vertebral tenderness Extremity Exam: normal inspection, normal range of motion Neurologic Exam: alert, oriented x 3, cooperative, normal mood/affect, sensation nml, No motor deficits Skin Exam: normal color, warm, dry Lymphatic Exam: No adenopathy SpO2 Interpretation: normal SpO2: 97 O2 Delivery: Room Air - Course Nursing assessment & vital signs reviewed: Yes EKG Interpreted by Me: RATE (85, atrial sensed ventricular paced complexes. Right bundle branch block.) - Radiology Exams Chest X-ray Interpretation: Interpreted by me (Lung harkins are clear. AICD pacemaker and dialysis port observed. Sternotomy wires intact. No acute process observed.) Ordered Tests: Active Orders 24 hr Category Date Time Status Auto Glass Installer STAT Care 07/05/20 22:10 Active EKG-ER Only STAT Care 07/05/20 22:09 Active IV Insertion STAT Care 07/05/20 22:09 Active Pulse Oximetry (ED) STAT Care 07/05/20 22:09 Active CHEST 1 VIEW (PORTABLE) Stat Exams 07/05/20 22:10 Taken CBC W DIFF Stat Lab 07/05/20 22:50 Completed CMP Stat Lab 07/05/20 22:50 Completed MAGNESIUM Stat Lab 07/05/20 22:50 Completed NT PRO BNP Stat Lab 07/05/20 22:50 Completed TROPONIN Q3H Lab 07/05/20 22:50 Completed TROPONIN Q3H Lab 07/06/20 01:35 Completed TROPONIN Q3H Lab 07/06/20 04:15 Ordered TROPONIN Q3H Lab 07/06/20 07:15 Ordered TROPONIN Q3H Lab 07/06/20 10:15 Ordered UA W/RFX UR CULTURE Stat Lab 07/05/20 22:10 Ordered Medication Summary Generic Name Dose Route Start Last Admin Trade Name Diomedes PRN Reason Stop Dose Admin Amiodarone HCl/Dextrose 360 mg in 200 mls @ 33 mls/hr 07/05/20 22:15 07/05/20 22:14 Nexterone 360 Mg/200 Ml Bag IV 08/04/20 22:14 15 mls/hr .Q6H4M BENY 15 mls/hr Administration Protocol Discontinued Medications Generic Name Dose Route Start Last Admin Trade Name Gorgeq PRN Reason Stop Dose Admin Amiodarone HCl/Dextrose Confirm 07/05/20 22:08 Nexterone 360 Mg/200 Ml Bag Administered 07/05/20 22:09 Dose 360 mg in 200 mls @ ud IV .STK-MED ONE Lab/Rad Data: Laboratory Result Diagrams 07/05/20 22:50 07/05/20 22:50 Laboratory Results 07/06/20 07/05/20 07/05/20 Range/Units 01:35 22:50 22:50 WBC (4.0-10.5) K/mm3 RBC (4.1-5.6) M/mm3 Hgb (12.5-18.0) gm/dl Hct (42-50) % MCV (78-100) fl MCH (26-32) pg MCHC (32-36) g/dl RDW (11.5-14.0) % Plt Count (150-450) K/mm3 MPV (7.5-11.0) fl Gran % (36.0-66.0) % Eos # (Auto) (0-0.5) Absolute Lymphs (auto) (1.0-4.6) Absolute Monos (auto) (0.0-1.3) Lymphocytes % (24.0-44.0) % Monocytes % (0.0-12.0) % Eosinophils % (0.00-5.0) % Basophils % (0.0-0.4) % Absolute Granulocytes (1.4-6.9) Basophils # (0-0.4) Sodium 137 (137-145) mmol/L Potassium 3.8 (3.5-5.1) mmol/L Chloride 93 L (98-107) mmol/L Carbon Dioxide 33 H (22-30) mmol/L Anion Gap 14.8 (5-15) MEQ/L BUN 21 H (9-20) mg/dL Creatinine 4.52 H (0.66-1.25) mg/dL Estimated GFR 13.4 ML/MIN Glucose 145 H (74-106) mg/dL Calcium 8.8 (8.4-10.2) mg/dL Magnesium 2.1 (1.6-2.3) mg/dL Total Bilirubin 0.60 (0.2-1.3) mg/dL AST 64 H (17-59) U/L ALT 72 H (0-50) U/L Alkaline Phosphatase 93 (38-126) U/L Troponin I 2.680 H* 1.110 H* (0.000-0.034) ng/mL NT-Pro-B Natriuret Pep 22541 H (0-1800) pg/mL Serum Total Protein 6.7 (6.3-8.2) g/dL Albumin 3.9 (3.5-5.0) g/dL 07/05/20 Range/Units 22:50 WBC 6.0 (4.0-10.5) K/mm3 RBC 2.91 L (4.1-5.6) M/mm3 Hgb 10.1 L (12.5-18.0) gm/dl Hct 32.9 L (42-50) % MCV 113.1 H (78-100) fl MCH 34.7 H (26-32) pg MCHC 30.7 L (32-36) g/dl RDW 14.6 H (11.5-14.0) % Plt Count 122 L (150-450) K/mm3 MPV 11.2 H (7.5-11.0) fl Gran % 72.7 H (36.0-66.0) % Eos # (Auto) 0.10 (0-0.5) Absolute Lymphs (auto) 0.93 L (1.0-4.6) Absolute Monos (auto) 0.60 (0.0-1.3) Lymphocytes % 15.4 L (24.0-44.0) % Monocytes % 9.9 (0.0-12.0) % Eosinophils % 1.7 (0.00-5.0) % Basophils % 0.3 (0.0-0.4) % Absolute Granulocytes 4.39 (1.4-6.9) Basophils # 0.02 (0-0.4) Sodium (137-145) mmol/L Potassium (3.5-5.1) mmol/L Chloride (98-107) mmol/L Carbon Dioxide (22-30) mmol/L Anion Gap (5-15) MEQ/L BUN (9-20) mg/dL Creatinine (0.66-1.25) mg/dL Estimated GFR ML/MIN Glucose (74-106) mg/dL Calcium (8.4-10.2) mg/dL Magnesium (1.6-2.3) mg/dL Total Bilirubin (0.2-1.3) mg/dL AST (17-59) U/L ALT (0-50) U/L Alkaline Phosphatase (38-126) U/L Troponin I (0.000-0.034) ng/mL NT-Pro-B Natriuret Pep (0-1800) pg/mL Serum Total Protein (6.3-8.2) g/dL Albumin (3.5-5.0) g/dL - Progress Progress: improved Air Movement: good Progress Note: Case discussed with Dr. Ace. Transfer unable to be accepted due to bed limitation. He advised transfer to [place]. 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 Dr. Caruso covering Dr. Lee accepts transfer. Plan of care discussed with patient. He agrees to transfer to [facility] for further evaluation and treatment. 07/06/20 01:44 Blood Culture(s) Obtained: No Antibiotics given: No Counseled pt/family regarding: lab results, diagnosis, rad results - Departure Departure Disposition: Transfer Clinical Impression: AICD discharge, Ventricular tachyarrhythmia, Elevated brain natriuretic peptide (BNP) level, Elevated troponin I level, ESRD (end stage renal disease), Megaloblastic anemia, Thrombocytopenia Condition: Stable Critical Care Time: No Referrals: NIKITA ODELL [Primary Care Provider] -
[2020-07-06 02:15] VITALS: BP 117/62; PULSE 60
[2020-07-06 03:08] VITALS: O2SAT 99
--- NOTE | 2020-07-06 08:48 | XRAY ---
Indication: Chest pain. Defibrillator malfunction. Comparison: June 14, 2020. Portable chest demonstrates new left AICD with intact leads. Heart not enlarged again with CABG surgery and right dialysis catheter. Lungs demonstrate stable left base subsegmental atelectasis with costophrenic angle blunting. No new acute cardiopulmonary abnormalities.
== END 2020-07-06 03:00 | disposition short-term general hospital (02) ==
LOC: ED 21:41
DX: Z95.810 Presence of automatic (implantable) cardiac defibrillator (principal); T82.198A Other mechanical complication of other cardiac electronic device, initial encounter; R00.0 Tachycardia, unspecified; R79.89 Other specified abnormal findings of blood chemistry; R74.8 Abnormal levels of other serum enzymes; Z86.79 Personal history of other diseases of the circulatory system; D53.1 Other megaloblastic anemias, not elsewhere classified; D69.6 Thrombocytopenia, unspecified; Z99.2 Dependence on renal dialysis; Z79.899 Other long term (current) drug therapy; Z79.01 Long term (current) use of anticoagulants; J44.9 Chronic obstructive pulmonary disease, unspecified; I50.9 Heart failure, unspecified; I25.2 Old myocardial infarction
CPT/HCPCS: 36415; 71045; 80053; 83735; 83880; 84484; 85025; 93005; 93041; 94760; 99285

== ENCOUNTER 2020-10-10 19:31 | Emergency (ER) | payer MEDICARE, OTHER ==
[2020-10-10] MEDS ORDERED: ARZOL Silver Nitrate Applicator TP ONE (20:16)
[2020-10-10 20:19] VITALS: PULSE 60; O2SAT 97
--- NOTE | 2020-10-10 20:28 | ERPHSYRPT ---
- History of Present Illness Time Seen by Provider: 10/10/20 19:40 Source: patient Exam Limitations: no limitations Patient Subjective Stated Complaint: pt states "I fell last night and can't get the bleeding to stop." Triage Nursing Assessment: pt came into the er via wheelchair; pt is axo x3; c/o fall with injury; pt states he has multiple skin tears; pt states he is on blood thinners; pt denies pain to LUE; pt states mild pain to rt shoulder; bruise present rt shoulder; skin tear to rt wrist measuring 1x1; skin tear present to LUE measuring 5x2 cm and 5x4 cm; skin tears are reinfornced with minimal bleeding present; skin tear to lower LUE measuring 1x1cm and 1x2 cm; vitals wnl Physician History: 79 years old male with history of atrial flutter on Eliquis, congestive heart failure, CAD presented in the ER with chief complaint of skin tear left upper extremity after he took a fall yesterday evening and hit his arm against furniture causing superficial skin tear. He applied a bandage but he continued to have slow oozing. Denies any difficulty movements of left upper extremity. Did not hit his head, no loss of consciousness or injury anywhere else. Timing/Duration: yesterday, intermittent Severity: mild Location: extremities Possible Causes: other Allergies/Adverse Reactions: Penicillins Allergy (Verified 10/10/20 20:01) Rash Home Medications: Clonidine HCl 0.1 mg [Catapres 0.1 MG] 0.05 mg PO BID 11/06/19 [History] Clopidogrel Bisulfate 75 mg [PLAVIX 75 MG Tablet] 75 mg PO DAILY 11/06/19 [History] Finasteride 5 mg PO DAILY 11/06/19 [History] Nifedipine [Procardia Xl] 30 mg PO BID 11/06/19 [History] Ranolazine 500 MG [Ranexa 500 MG] 500 mg PO BID 11/06/19 [History] Rosuvastatin Calcium [Crestor] 20 mg PO DAILY 11/06/19 [History] Tamsulosin HCl 0.4 mg [Flomax 0.4 MG] 0.4 mg PO DAILY 11/06/19 [History] allopurinoL [Allopurinol] 100 mg PO DAILY 11/06/19 [History] Apixaban [Eliquis] 5 mg PO BID 10/10/20 [History] Hx Tetanus, Diphtheria Vaccination/Date Given: Yes Hx Influenza Vaccination/Date Given: Yes Hx Pneumococcal Vaccination/Date Given: Yes Travel Risk - International Travel Have you traveled outside of the country in past 3 weeks: No - Coronavirus Screening Are you exhibiting any of the following symptoms?: No Close contact with a COVID-19 positive Pt in past 14-21 Days: No - Vaccine Status Have you recieved a Covid-19 vaccination: Yes 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[employer] - Vaccination Dates Date of 2cond Vaccination (if applicable): may 2020 - Review of Systems Constitutional: No Symptoms Eyes: No Symptoms Ears, Nose, & Throat: No Symptoms Respiratory: No Symptoms Cardiac: No Symptoms Abdominal/Gastrointestinal: No Symptoms Musculoskeletal: Injury Skin: Skin Lesions Neurological: No Symptoms Endocrine: No Symptoms Hematologic/Lymphatic: No Symptoms - Past Medical History Pertinent Past Medical History: Yes Neurological History: Stroke Cardiac History: Arrhythmia, Congestive Heart Failure, Myocardial Infarction ([place]) Respiratory History: CHF, COPD Endocrine Medical History: Adrenal Insufficiency Musculoskeletal History: Osteoarthritis History: Other Other Medical History: Pt has a bone spur in the R shoulder, 2 By-pass surgeries 05/03/94 and 12/29/01. Heart stints, light stroke 10/24/12. - Past Surgical History Past Surgical History: Yes Cardiac: CABG, Internal Defibrillator, Pacemaker Other Surgical History: cabg x2 - Social History Smoking Status: Former smoker Exposure to second hand smoke: No Drug Use: none Patient Lives Alone: No - Nursing Vital Signs Nursing Vital Signs: Initial Vital Signs Temperature 97.9 F 10/10/20 19:45 Pulse Rate 60 10/10/20 19:45 Respiratory Rate 18 10/10/20 19:45 Blood Pressure 112/58 10/10/20 19:45 O2 Sat by Pulse Oximetry 97 10/10/20 19:45 Pain Scale Pain Intensity 0 - Physical Exam General Appearance: no apparent distress Eye Exam: PERRL/EOMI Ears, Nose, Throat Exam: normal ENT inspection, TMs normal, pharynx normal, moist mucous membranes Neck Exam: normal inspection, non-tender, supple, full range of motion Respiratory Exam: normal breath sounds, chest tenderness, lungs clear Cardiovascular Exam: regular rate/rhythm, normal heart sounds Extremity Exam: other (Multiple superficial skin tears left upper lateral arm and forearm with slow oozing.) Neurologic Exam: alert, oriented x 3, cooperative Skin Exam: normal color SpO2 Interpretation: normal SpO2: 97 O2 Delivery: Room Air Ordered Tests: Medication Summary Discontinued Medications Generic Name Dose Route Start Last Admin Trade Name Diomedes PRN Reason Stop Dose Admin Silver Nitrate Confirm 10/10/20 20:16 Arzol Silver Nitrate Applicator Administered 10/10/20 20:17 Dose 6 pkt TP .STK-MED ONE - Progress Progress: improved Progress Note: 10/10/20 20:56 Has superficial skin tears with partial skin loss and minimal oozing. After informed consent silver nitrate cauterization is done, patient is observed for almost 45 minutes after that with no rebleeding, applied bacitracin and Telfa/nonadherent dressing and outpatient follow-up. No injury anywhere else, do not think needs any other work-up and is stable for discharge. Counseled pt/family regarding: diagnosis, need for follow-up - Departure Departure Disposition: Home Clinical Impression: Skin tear Fall Qualifiers: Encounter type: initial encounter Qualified Code(s): W19.XXXA - Unspecified fall, initial encounter Condition: Stable Critical Care Time: No Referrals: NIKITA ODELL [Primary Care Provider] - Follow Up with PCP/3 days Instructions: Wound Care (DC) Additional Instructions: Apply bacitracin, daily dressing changes nonadherent. Follow-up with primary care for reevaluation. Apply firm pressure dressing if started bleeding again and return to ER.
[2020-10-10 20:41] VITALS: BP 136/72
== END 2020-10-10 21:16 | disposition home or self-care (01) ==
LOC: ED 19:31
DX: S61.511A Laceration without foreign body of right wrist, initial encounter (principal); W22.03XA Walked into furniture, initial encounter; Z79.899 Other long term (current) drug therapy; I50.9 Heart failure, unspecified; J44.9 Chronic obstructive pulmonary disease, unspecified; I25.2 Old myocardial infarction; Z95.1 Presence of aortocoronary bypass graft; Z95.0 Presence of cardiac pacemaker; Z95.810 Presence of automatic (implantable) cardiac defibrillator
CPT/HCPCS: 99283; A9270-GY